=== PATIENT | male | born 1990 | race Caucasian/White ===

== ENCOUNTER → 2017-11-19 | Emergency (ER) | payer SELFPAY ==
[2017-11-19 06:30] VITALS: BP 132/88; PULSE 87; TEMP 96.6; BMI 25.1
== END | disposition left against medical advice (07) ==
LOC: JER 06:23 → SUPCPDRO 06:23
DX: F10.120 Alcohol abuse with intoxication, uncomplicated (principal)
CPT/HCPCS: 99281-25